=== PATIENT | male | born 1955 | race Hispanic/Latino ===

== ENCOUNTER 2020-05-23 15:46 | Inpatient (IN) | payer SELFPAY ==
[~2020-05-23] VITALS: Ht 167.6 cm; Wt 67.0 kg
[~2020-05-23 15:46] MED LIST: ALLEGRA30 MG OR; BENADRYL25 M1 OR; DARVOCET-N 100100 MG OR; GENTAMICIN15 ML/BTL OP; LORTAB 5/3255 MG PO; NAPROSYN500 MG PO; SEPTRA DS1 TAB OR
--- NOTE | 2020-05-23 16:01 | NUR ---
PATIENT REMAINS ON EMS STRETCHER WITH EMS AWAITING ROOM ASSIGNMENT. MD NOTIFIED OF PATIENT STATUS
--- NOTE | 2020-05-23 16:49 | NUR ---
PATEINT TO ROOM 16 FOR EXAM
--- NOTE | 2020-05-23 17:41 | NUR ---
PATEINT RESTING AWAITING LAB AND RADIOLOGY RESULTS PATIENT DENIES ANY SOB OR PAIN AT THIS TIME
[2020-05-23 18:13] LABS: URINE BILIRUBIN - DIPSTICK NEGATIVE (NEGATIVE); URINE BLOOD DIPSTICK NEGATIVE (NEGATIVE); URINE COLOR YELLOW; URINE GLUCOSE - DIPSTICK NEGATIVE (NEGATIVE); URINE KETONE NEGATIVE (NEGATIVE); URINE LEUK ESTERASE NEGATIVE (NEGATIVE); URINE NITRITE - DIPSTICK NEGATIVE (Negative); URINE PROTEIN - DIPSTICK NEGATIVE (NEG-TRACE); URINE UROBILINOGEN - DIPSTICK 0.2 E.U./dL (0.2)
[2020-05-23 18:22] LABS: ALBUMIN 3.8 g/dL (3.2-5.0); ALKALINE PHOSPHATASE 58 u/l (38-126); BUN 12 mg/dL (8-23); BUN/CREATININE RATIO 12 (12-20 (CALC)); CARBON DIOXIDE 20 mmol/l (22-30); CHLORIDE 95 mmol/l (95-108); GFR > 60 ML/MIN (>=60 (CALC)); GFR FOR AFR.AMER. > 60 ML/MIN (>=60 (CALC)); LIPASE 116 u/l (23-300); POTASSIUM 4.1 mmol/l (3.5-5.1); TOTAL PROTEIN 6.5 g/dL (6.3-8.2)
[2020-05-23 18:23] LABS: ACT PARTIAL THROMBO TIME 25.5 SECONDS (20.0-32.5); INTERNATIONAL NORMALIZED RATIO 1.3 RATIO (0.7-1.3); PROTHROMBIN TIME 12.7 SECONDS (9.0-12.5)
[2020-05-23 18:24] LABS: HEMATOCRIT 33.3 % (39.0-50.0); HEMOGLOBIN 11.4 g/dl (14.0-18.0); RED BLOOD COUNT 3.21 mill/uL (4.70-6.10)
[2020-05-23 18:25] LABS: BASO% 0 % (0-3); EOS% 0 % (0-8); LYMPH% 26 % (15-41); MEAN CELL VOLUME 103.7 fL CALC (80.0-100.0); MEAN CORPUSCULAR HGB 35.5 pG CALC (26.0-32.0); MEAN CORPUSCULAR HGB CONC 34.2 g/dL CAL (32.0-36.0); MONO% 13 % (2-13); NEUT% 61 % (42-76); PLATELET COUNT 215 thou/uL (130-400); RED CELL DISTRI WIDTH 18.2 % (11.5-15.5)
[2020-05-23 18:31] LABS: ANION GAP 16 (6-22 (CALC)); BILIRUBIN, TOTAL 1.4 mg/dL (0.0-1.4); SGOT/AST 87 u/l (19-48); SODIUM 127 mmol/l (137-146)
--- NOTE | 2020-05-23 18:40 | NUR ---
PATIENT RESTING IN STRETCHER IN NAD AND DENIES ANY NEEDS AT THIS TIME. PATIENT DOES REPORTS GENERALIZED ABDOMINAL PAIN. PT REMOVED FROM 02. SPO2 REMAINS 98% ON ROOM AIR.
--- NOTE | 2020-05-23 19:30 | NUR ---
RESTING COMFORTABLY AWAITING CT.
--- NOTE | 2020-05-23 20:30 | NUR ---
NO CHANGE IN EXAM. AWAITING TEST RESULTS.
--- NOTE | 2020-05-23 21:30 | NUR ---
NO CHANGES NOTED APPEARS COMFORTABLE.
--- NOTE | 2020-05-23 23:03 | NUR ---
AWAITING DISPO. NO SIGNIFICANT CHANGE NOTED.
[2020-05-24] VITALS (7 sets, daily range): BP systolic 104–129; BP diastolic 70–90
--- NOTE | 2020-05-24 00:36 | NUR ---
PT ARRIVED TO FLOOR VIA WHEELCHAIR ACCOMPANIED BY ER STAFF. PT ALERT AND ORIENTED X3. NO APPARENT DISTRESS NOTED. PT AMBULATED TO BED WITH UNSTEADY GAIT. PT DENIES ANY PAIN AT THIS TIME, STATES PAIN MEDICATION MAKING HIM DIZZY AND HOT. DIAPHORETIC. COOL WET WASH CLOTH AND FAN PROVIDED AT THIS TIME. HOB ELEVATED. O2 SATS 85% ON RA, 2L/M VIA NC APPLIED AT THIS TIME AND SATS UP TO 96%. ELECTRICAL CONTROLS ENGINEER IN PLACE. IV SITE APPEARS HEALTHY, IVF INITIATED AT THIS TIME. DISCUSSED POC AND NPO. PT VERBALIZED UNDERSTANDING. ORIENTED TO ROOM AND CALL LIGHT SYSTEM. EDUCATED ON FALL RISKS AND SAFETY PRECAUTIONS. CALL LIGHT WITHIN REACH. WILL CONTINUE TO MONITOR.
--- NOTE | 2020-05-24 03:13 | NUR ---
PILE DRIVER IN ROOM TO OBTAIN LABS.
--- NOTE | 2020-05-24 08:00 | NUR ---
PT IS NPO. PT IS A&O X3. ASSESSMENT DONE. PT STATED PAIN ABD 5/10 BUT REFUSED PAIN MEDICATION AT THIS TIME. O2 AT 2L VIA NC. IVF INFUSING WELL. PT DENIES NEEDS AT THIS TIME. SAFETY PRECAUTION REINFORCED AND CALL LIGHT IN REACH.
--- NOTE | 2020-05-24 12:03 | NUR ---
PT IS RESTING IN BED WITH NO S/S OF DISTRESS NOTED. PT DENIES NEEDS AT THIS TIME. CALL LIGHT IN REACH.
--- NOTE | 2020-05-24 15:30 | NUR ---
PT IS RESTING IN BED. PO PROVIDED. PT DENIES PAIN AT THIS TIME. PT DENIES ANY OTHER NEEDS AT THIS TIME. CALL LIGHT IN REACH.
--- NOTE | 2020-05-24 20:03 | NUR ---
REPORT RECEIVED FROM RN. PT RESTING IN BED SUPINE; ASSESSMENT AND VITALS COMPLETE ALERT AND ORIENTED. PT DENIES PAIN. PT C/O OF NAUSEA. RESPIRATIONS HEARD DIMINISHED; SOB UPON EXERTION; PT ON 2 LITERS OF O2. TELEMENTRY IN PLACE IN SR. PT ENCOURAGED TO VERBALIZE CONCERNS. STATES UNDERSTANDING. SAFETY MEASURES IN PLACE. CALL LIGHT WITHIN REACH.
--- NOTE | 2020-05-25 00:11 | NUR ---
PT REQUESTED TO SIT IN CHAIR. FEELING ANXIOUS, NAUSEA AND SHORT OF BREATH. ZOFRAN PROVIDED. PT IS ON 2 LITERS OF 02 AND STATING AT 99%. CALL SOFIA WITHIN REACH. WILL MONITOR CLOSELY.
--- NOTE | 2020-05-25 00:16 | NUR ---
PT PULLED OUT HIS IV. PT REMAINS CONFUSED. SITTER IS BEDSIDE. WILL CONTINUE TO MONITOR.
--- NOTE | 2020-05-25 03:54 | NUR ---
PT RESTING IN BED, NO SIGNS OF DISTRESS NOTED, RESP EVEN AND UNLABORED. PT VOICES NO NEEDS OR COMPLAINTS AT THIS TIME. CALL LIGHT IN REACH,CONTINUE TO MONITOR.
[2020-05-25 04:05] VITALS: BP 95/67
--- NOTE | 2020-05-25 06:55 | NUR ---
REPORT RECEIVED FORM MAGALIE LYNNE. PT RESTING IN BED, NO S/S OF DISTRESS AT THIS TIME. SAFETY PRECAUTIONS IN PLACE. WILL CONTINUE MONITOR.
[2020-05-25 07:24] VITALS: BP 105/70
--- NOTE | 2020-05-25 09:53 | NUR ---
PT RESTING IN BED, ALERT AND ORIENTED. RESPIRATIONS ARE EVEN AND UNLABORED ON RA. LUNGS SOUND CLEAR. PEDAL PULSES ARE WEAK. PT REPORTS HAVING ABDOMINAL PAIN RATING IT 8/10, PT EDUCATED ON PAIN MED SCHEDULE, MD TO BE NOTIFIED. SAFETY PRECAUTIONS IN PLACE. WILL CONTINUE TO MONITOR.
[2020-05-25 11:02] VITALS: BP 98/71
--- NOTE | 2020-05-25 11:48 | NUR ---
PT SITTING UP AT THIS SIDE OF THE BED. NO S/S OF DISTRESS AT THIS TIME. SAFETY PRECAUTIONS IN PLACE. WILL CONTINUE TO MONITOR.
[2020-05-25 15:05] VITALS: BP 98/76
--- NOTE | 2020-05-25 16:02 | NUR ---
PT RESTING IN BED, RESPIRATIONS ARE EVEN AND UNLABORED. NO S/S OF DISTRESS AT THIS TIME. WILL CONTINUE TO MONITOR.
--- NOTE | 2020-05-25 19:01 | NUR ---
REPORT FROM PILY MEJIAS. PT NOTED SITTING UP IN BED. ALERT AND ORIENTED. NO APPARENT DISTRESS NOTED. RESPIRATIONS EVEN AND UNLABORED. PT C/O NO GETTING ANY REST AND REQUEST SLEEPING PILL LATER THIS EVENING. DISCUSSED POC AND ANEW MEDICATION ORDERS FOR SLEEP NEED. PT VERBALIZED UNDERSTANDING. FEATHER BONER IN PLACE. IV SITE APPEARS HEALTHY WITH IVF INFUSING. PT REMAINS ON CLEAR LIQUID DIET. NO CURRENT WANTS OR NEEDS. CALL LIGHT WITHIN REACH. WILL CONTINUE TO MONITOR.
[2020-05-25 20:16] VITALS: BP 112/79
[2020-05-25 23:15] VITALS: BP 104/73
--- NOTE | 2020-05-25 23:57 | NUR ---
PT NOTED RESTING IN BED. RESPIRATIONS EVEN AND UNLABORED. NO APPARENT DISTRESS NOTED. IVF INFUSING WITHOUT DIFFICULTY. PT DENIES ANY PAIN OR DISCOMFORT. NO CURRENT WANTS OR NEEDS. CALL LIGHT WITHIN REACH. WILL CONTINUE TO MONITOR.
[2020-05-26] VITALS (17 sets, daily range): BP systolic 99–138; BP diastolic 67–88
--- NOTE | 2020-05-26 04:45 | NUR ---
PT REFUSED PROFESSOR OF COMMUNICATION ARTS TO DRAW MORNING LABS. SKIDDER LEVER OPERATOR IN TO DISCUSSED AND EDUCATE ON IMPORTANCE OF LABS. PT VERBALIZED UNDERSTANDING AND AGREES TO ALLOW SKIDDER LEVER OPERATOR TO DRAW LABS AT THIS TIME. LABS OBTAIN WITH X1 ATTEMPT. PT TOLERATED WELL. COFFEE PROVIDED UPON REQUEST. CALL LIGHT WITHIN REACH. WILL CONTINUE TO MONITOR.
[2020-05-26 05:07] LABS: HEMATOCRIT 33.8 % (39.0-50.0); HEMOGLOBIN 11.3 g/dl (14.0-18.0); IMMATURE GRANULOCYTES 0.5 % (0.0-5.0); MEAN CELL VOLUME 104.6 fL CALC (80.0-100.0); MEAN CORPUSCULAR HGB CONC 33.4 g/dL CAL (32.0-36.0); NEUT# 8.29 thou/uL (1.82-7.42); RED BLOOD COUNT 3.23 mill/uL (4.70-6.10); RED CELL DISTRI WIDTH 17.2 % (11.5-15.5)
[2020-05-26 05:18] LABS: ALBUMIN 3.5 g/dL (3.2-5.0); ALKALINE PHOSPHATASE 59 u/l (38-126); ANION GAP 14 (6-22 (CALC)); BILIRUBIN, TOTAL 1.9 mg/dL (0.0-1.4); BUN 14 mg/dL (8-23); BUN/CREATININE RATIO 13 (12-20 (CALC)); CARBON DIOXIDE 19 mmol/l (22-30); CHLORIDE 102 mmol/l (95-108); CREATININE 1.1 mg/dL (0.7-1.3); GFR > 60 ML/MIN (>=60 (CALC)); GFR FOR AFR.AMER. > 60 ML/MIN (>=60 (CALC)); POTASSIUM 4.6 mmol/l (3.5-5.1); SODIUM 132 mmol/l (137-146)
[2020-05-26 05:37] LABS: SGOT/AST 545 u/l (19-48)
--- NOTE | 2020-05-26 07:00 | NUR ---
REPORT RECEIVED FROM HORACE DIAL. PT RESTING IN BED, NO S/S OF DISTRESS AT THIS TIME. SAFETY PRECAUTIONS IN PLACE. WILL CONTINUE TO MONITOR.
--- NOTE | 2020-05-26 09:10 | NUR ---
PT RESTING IN RECLINER AT BEDSIDE, ALERT AND ORIENTED. RESPIRATIONS ARE EVEN AND UNLABORED ON RA. LUNG SOUND DIMINISHED. PEDAL PULSES ARE WEAK. PT REPORTS HAVING MODERATE ABDOMINAL PAIN, PT TO BE MEDICATED PER EMAR ORDERS. SAFETY PRECAUTIONS IN PLACE. WILL CONTINUE TO MONITOR.
--- NOTE | 2020-05-26 12:25 | NUR ---
PT SITTING IN RECLINER AT BEDSIDE, RESPIRATIONS ARE EVEN AND UNLABORED ON RA. PT REPORTS FEELING NAUSEOUS STATING THE ZOFRAN ISN'T HELPING, ANPR TO BE NOTIFIED. SAFETY PRECAUTIONS IN PLACE. WILL CONTINUE TO MONTIOR.
--- NOTE | 2020-05-26 13:20 | NUR ---
PT RESTING IN RECLINER. PT ASSISTED INTO BED, PT REPORTS FEELING SOB, O2 SAT ON RA 88%, O2 @ 2L VIA NC APPLIED PT O2 SAT 99%. ANRP NOTIFIED OF PT SEEMING TO HAVE AN INCREASE IN SHORTNESS OF BREATH. SAFETY PRECAUTIONS IN PLACE. WILL CONTINUE TO MONITOR.
--- NOTE | 2020-05-26 14:10 | NUR ---
PT BATHROOM LIGHT GOING OFF, YOUNG ABURTO WENT IN TO ASSIST PT, YOUNG CALLED CYANIDE POT TENDER FOR ASSISTANCE. UPON ENTERING THE ROOM PT WAS SITTING ON TOLIET DYSPNEIC ON RA, SOAKED WITH SWEAT. PT ASSISTED BACK INTO BED. 1421 VS OBTAIN BP, ACCU 94 1430 RAPID RESPONSE CALLED, DOG RAISER AT BEDSIDE ORDERS OBTAINED AND TO BE CARRIED OUT. EKG OBTAINED. LAB AT BEDSIDE OBTAINING BLOOD FOR LABS. RESPIRATORY AT BEDSIDE OBTAINING BLOOD FOR BLOOD GAS. 1500 PT TRANSPORTED TO ICU, REPORT GIVEN AT BEDSIDE.
[2020-05-26 14:29] LABS: HEMATOCRIT 37.3 % (39.0-50.0); HEMOGLOBIN 12.1 g/dl (14.0-18.0); IMMATURE GRANULOCYTES 0.6 % (0.0-5.0); MEAN CELL VOLUME 107.8 fL CALC (80.0-100.0); MEAN CORPUSCULAR HGB CONC 32.4 g/dL CAL (32.0-36.0); NEUT# 10.76 thou/uL (1.82-7.42); RED BLOOD COUNT 3.46 mill/uL (4.70-6.10); RED CELL DISTRI WIDTH 17.6 % (11.5-15.5)
[2020-05-26 14:46] LABS: ALBUMIN 4.1 g/dL (3.2-5.0); ALKALINE PHOSPHATASE 63 u/l (38-126); BUN 13 mg/dL (8-23); BUN/CREATININE RATIO 11 (12-20 (CALC)); CHLORIDE 101 mmol/l (95-108); CREATININE 1.2 mg/dL (0.7-1.3); GFR > 60 ML/MIN (>=60 (CALC)); GFR FOR AFR.AMER. > 60 ML/MIN (>=60 (CALC)); POTASSIUM 4.6 mmol/l (3.5-5.1); SODIUM 132 mmol/l (137-146); TOTAL PROTEIN 6.8 g/dL (6.3-8.2)
[2020-05-26 14:56] LABS: ANION GAP 22 (6-22 (CALC)); BILIRUBIN, TOTAL 2.7 mg/dL (0.0-1.4); CARBON DIOXIDE 14 mmol/l (22-30); SGOT/AST > 1500 u/l (19-48)
--- NOTE | 2020-05-26 15:19 | NUR ---
PATIENT TRANSFERRED TO ICU AFTER RAPID RESPONSE ON MED SURGE UNIT. MED SURG NURSE STATED IN REPORT THAT PATIENT HAS BEEN SOB ALL DAY TODAY. PATIENET WAS UP TO THE BATHROOM AND BECAME EXTREMELY SOB. O2 SATS WERE 84, RAIPID CALLED AND PATIENT STABLIZED AND TRANSFEERED TO ICU @1430. PATIENT PLACED ON 4 LTRS O2, TEMP 97.2, BP 111/81, RESP 18, PULSE 102 O2 SATS 97 ON 4 LTR O2. LASIX GIVEN AND FLAGYL ALSO GIVEN. FLUIDS HELD PER MD AND XRAY AT BEDSIDE PERFORMING XRAY OF CHEST. PATIENT EASILY ARROUSED, PATIENT SLIGHTLY DISORIENTED ALERT TO SELF AND PLACE. BED IN LOWEST POSTION, VITALS Q 15 MIN, CALL SOFIA WITH IN REACH AND URINAL AT BEDSIDE. PATIENT IS VISABLE TO NURSE AT STATION.
--- NOTE | 2020-05-26 16:21 | NUR ---
NOTIFEDOF D-DIMER RESULTS. REQUESTS A CTA.
--- NOTE | 2020-05-26 17:50 | NUR ---
PATIENT TAKEN TO CT. AWAITING RESULTS. #20 IN RT AC
--- NOTE | 2020-05-26 18:12 | NUR ---
PATIENT WAS OFFERED ASSISTANCE TO BEDSIDE COMMODE AND REUSED STATING "NO, i KNOW i WONT GO"
--- NOTE | 2020-05-26 19:00 | NUR ---
I WALK IN PATIENT IS RESTLESS IN BED. REPORTS HE HAS NEVER HAD SO MUCH BLOOD DRAWN, NOT EVEN IN [place]. PT WAS EXPLAINED POC, PT WAS ASSISTED WITH REPOSITIONING. LIGHTS TURNED OFF AND TV OFF PER REQUEST. PT HAS HISTORY OF ALCOHOL, I ASKED IF HE DRINKS ALCOHOL DAILY, HE DENIES ALCOHOL CONSUMTION. WILL CONTINUE TO MONITOR. PT REPORTS DISCOMFORT IN STOMACH REGION. DECLINES PAIN MEDICATION AT THIS TIME. PT BECOMES SOB WITH EXRTION. IS ON NC 4 L/MIN, O2 SAT IS 98%. NURSE ASSESSMENT PERFORMED. BP WNL. AFEBRILE. SR ON TELEMETRY, HR RANGES 90'S. 400 ML OF URINE EMPTIED FROM URINAL, URINE IS YELLOW/CLEAR. IV X2 INTACT AND SALINE LOCKED AT THIS MOMENT, FLUSH PROPERLY. CALL LIGHT WITHIN REACH.
--- NOTE | 2020-05-26 20:47 | NUR ---
CALLED AND SPOKE TO DR AYDEN ZUNIGA RESULTS OF CTA OF CHEST THAT WAS DONE AT 1749 TODAY. READ THE RESULTS TO DR HENSLEY, NOTIFIED HIM PATIENT O2 SAT 100% ON 4 L/MIN NC, SOB WITH EXERTION ONLY, DR HENSLEY GAVE ORDERS IF PATIENT BECOMES SOB WITH NO ALEVIATION CAN GIVE IV LASIX 40 MG X1. STOP IV FLUIDS FOR NOW. WATCH BP.
--- NOTE | 2020-05-26 23:02 | NUR ---
IV ANTIBITOIC INFUSING NOW ON KARTHIK IV, NO REDNESS OR TENDERNESS NOTED AT SITE. PATIENT TOLERATES WELL. PROVIDED A SLEEPING MEDICATION. O2 WAS WEANED TO 3 L/MIN NC, O2 SATS ARE 99%. SLIGHT SOB NOTED WITH EXERTION. CALL LIGHT WITHIN REACH.
[2020-05-27] VITALS (11 sets, daily range): BP systolic 83–109; BP diastolic 55–83
--- NOTE | 2020-05-27 01:30 | NUR ---
PATIENT HAS TO BE REMINDED NOT PULL OFF HIS IV'S OR PHARMACEUTICAL BOTANIST EQUIPMENT OFF AT TIMES.
--- NOTE | 2020-05-27 06:02 | NUR ---
PATIENT AWAKENS EASILY WHEN SPOKEN TO. SLIGHTLY RESTLESS IN BED. NO COMPLAINTS OR NEEDS AT THIS TIME. ANTIBIOTIC INFUSING. CALL LIGHT WITHIN REACH. O2 WEANED TO 2 L/MIN NC, O2 SAT IS 97%-100%.
--- NOTE | 2020-05-27 06:45 | NUR ---
REPORT RECEIVED FROM ACOSTA MEJIAS. TATIANA HANLEY.
--- NOTE | 2020-05-27 07:15 | NUR ---
PT RESTING IN BED WITH EYES CLOSED. AROUSES TO VERBAL STIMULI. PT IS ALERT AND ORIENTED X3. SHIFT ASSESSMENT COMPLETED AT THIS TIME. IV PATENT X2. CALL LIGHT IN REACH. WILL CONTINUE TO MONITOR.
--- NOTE | 2020-05-27 08:07 | NUR ---
DR PALM AT BEDSIDE AT THIS TIME.
--- NOTE | 2020-05-27 08:15 | NUR ---
PT TO RADIOLOGY VIA WHEELCHAIR ACCOMPANIED BY PET NUTRITION SPECIALIST. PT IN STABLE CONDIDITON.
--- NOTE | 2020-05-27 09:35 | NUR ---
PORT FLUSHED AND DEACCESSED TO RIGHT CHEST. PT TOLERATED WELL.
--- NOTE | 2020-05-27 11:30 | NUR ---
pt returned from radiology via wheelchair. pt transferred self to bed from wheelchair. am meds given at this time. pt also set up for lunch. pt sats 94%> on room air. call light in reach. will continue ot monitor.
--- NOTE | 2020-05-27 12:49 | NUR ---
SPOKE WITH DR PALM AND DR REN. PT TO BE TRANSFERRED TO [facility] FOR CHOLECYSTECTOMY TUBE PLACEMENT.
--- NOTE | 2020-05-27 12:57 | NUR ---
LAB AT BEDSIDE AT THIS TIME. PHONED [facility] SPOKE WITH RUBI. PT INFO GIVEN. PT AWARE OF NEED TO TRANSFER.
--- NOTE | 2020-05-27 12:58 | NUR ---
FACE SHEET, COVID SWAB, AND H&P FAXED TO [facility].
[2020-05-27 13:09] LABS: HEMATOCRIT 33.8 % (39.0-50.0); IMMATURE GRANULOCYTES 0.5 % (0.0-5.0); MEAN CORPUSCULAR HGB 35.1 pG CALC (26.0-32.0); MEAN CORPUSCULAR HGB CONC 32.5 g/dL CAL (32.0-36.0); NEUT# 11.59 thou/uL (1.82-7.42); RED BLOOD COUNT 3.13 mill/uL (4.70-6.10); RED CELL DISTRI WIDTH 18.1 % (11.5-15.5)
--- NOTE | 2020-05-27 13:14 | NUR ---
CONSENT OBTAINED FROM PATIENT TO TRANSFER TO [facility].
--- NOTE | 2020-05-27 13:14 | NUR ---
PT UP TO COMMODE 2X WITH DIARRHEA.
[2020-05-27 13:31] LABS: INTERNATIONAL NORMALIZED RATIO 2.6 RATIO (0.7-1.3); PROTHROMBIN TIME 24.4 SECONDS (9.0-12.5)
--- NOTE | 2020-05-27 13:40 | NUR ---
VISITOR AT BEDSIDE. PT REQUESTED THAT SHE BE UPDATED. UPDATED PER PT REQUEST.
[2020-05-27 13:56] LABS: ALBUMIN 3.1 g/dL (3.2-5.0); ALKALINE PHOSPHATASE 48 u/l (38-126); ANION GAP 15 (6-22 (CALC)); BILIRUBIN, TOTAL 2.8 mg/dL (0.0-1.4); BUN 17 mg/dL (8-23); BUN/CREATININE RATIO 15 (12-20 (CALC)); CARBON DIOXIDE 15 mmol/l (22-30); CHLORIDE 106 mmol/l (95-108); CREATININE 1.2 mg/dL (0.7-1.3); GFR > 60 ML/MIN (>=60 (CALC)); GFR FOR AFR.AMER. > 60 ML/MIN (>=60 (CALC)); POTASSIUM 4.7 mmol/l (3.5-5.1); SGOT/AST 2076 u/l (19-48); SODIUM 131 mmol/l (137-146); TOTAL PROTEIN 5.5 g/dL (6.3-8.2)
--- NOTE | 2020-05-27 14:21 | NUR ---
PT COUGHING AND O2 SATS DROP INTERMITTENTLY. PLACED PT BACK ON O2 2L NC. CALL LIGHT IN REACH. WILL CONTINUE TOMONITOR.
--- NOTE | 2020-05-27 14:37 | NUR ---
respirations are noted to be labored while resting. o2 sats 90% on 3l nc. dr wheatley notified.
--- NOTE | 2020-05-27 14:40 | NUR ---
ORDERES RECEIVED FROM DR PALM FOR STAT PORTABLE CXR AND STAT ABG. RT AND RADIOLOGY NOTIFIED.
--- NOTE | 2020-05-27 14:44 | NUR ---
RT AT BEDSIDE FOR STAT ABG
--- NOTE | 2020-05-27 14:47 | NUR ---
RADIOLOGY AT BEDSIDE FOR PORTABLE CXR
--- NOTE | 2020-05-27 15:14 | NUR ---
DR COATES NOTIFIED OF ABG AND CXR RESULTS. INCREASED O2 TO 4L NC
--- NOTE | 2020-05-27 15:52 | NUR ---
PT RESTING COMFORTABLY IN BED WITH EYES CLOSED. VISITOR AT BEDSIDE. RESP ARE EVEN AND UNLABORED. NO DISTRESS NOTED CALL LIGHT IN REACH. WILL CONTINUE OT MONITOR.
--- NOTE | 2020-05-27 18:30 | NUR ---
RUBI FROM [facility] CALLED AND STATED THAT THEY CURRENTLY DO NOT HAVE A BED FOR THIS TRANSFER. IF THE PATIENT CONDTION SHOULD CHANGE NOTIFIY [facility]. PATIENT WILL BE A PRIORITY FOR TRANSFER TOMMORROW.
--- NOTE | 2020-05-27 19:30 | NUR ---
PATIENT IS AWAKE, ALERT AND ORIENTED X4. O2 WEANED TO 3 L/MIN NC. ONLY SLOIGHT SOB WITH EXERTION NOTED. NO COMPLAINTS OF PAIN. BP 90'S SYTOLIC. SR ON TELEMETRY, HR 90'S. PATIENT IS AWARE OF CURRENT POC AND PENDING TRANSFER. IV X2 INTACT, FLUSH PROPERLY, NO REDNESS OR TENDERNESS NOTED, FLUSH PROPERLY, SALINE LOCKED. PATIENT HAS NONPRODUCTIVE COUGH. NURSE ASSESSMNENT PERFORMED. SELF REPOSITIONS. WARM BLANKET PROVIDED. CALL LIGHT WITHIN REACH.
--- NOTE | 2020-05-27 21:00 | NUR ---
PATIENT ABLE TO [place]ALKL TO RESTROOM WITHOUT DIFFICYLTY, HAD EPISODE OF DIARRHEA. NOW BACK TO BED, NO ACUTE DISTRESS SHOWN.
[2020-05-28] VITALS (7 sets, daily range): BP systolic 95–121; BP diastolic 68–89
--- NOTE | 2020-05-28 00:50 | NUR ---
PATIENT GETS UP FROM BED, COMPLAINS HE IS UNCOMFORTABLE. PATIENT MOVES AROUND IN BED AND BECOMES WRAPPED IN ALL OF EQUIPMENT. BED WAS FIXED AND PATIENT WAS ASSISTED TO GET COMFORTABLE. NO ACUTE DISTRESS SHOWN. CALL LIGHT WITHIN REACH.
--- NOTE | 2020-05-28 01:31 | NUR ---
PT COMPLAINS OF EPIGASTRIC PAIN, RATES 8/10. MORPHINE IV GIVEN.
--- NOTE | 2020-05-28 03:00 | NUR ---
PATIENT IS AWAKE, COMPLAINS HE CANNOT SLEEP. PT WAS GIVEN A SLEEPING MEDICATION LAST NIGHT. NO NEEDS AT THIS TIME. CALL LIGHT WITHIN REACH.
--- NOTE | 2020-05-28 05:38 | NUR ---
PATIENT IS AWAKE. NO ACUTE DISTRESS SHOWN. PULSE OXIMETER FIXED, BP CUFF ON LEFT ARM, PT MOVES IIN BED AND PULLS THINGS OFF AT TIMES. CALL LIGHT WITHIN REACH.
--- NOTE | 2020-05-28 06:45 | NUR ---
REPORT RECEIVED FROM ACOSTA MEJIAS. CARE ASSUMED.
--- NOTE | 2020-05-28 07:00 | NUR ---
PT RESTING IN BED WITH EYES CLOSED. PT IS ALERT AND ORIENTED X3. SHIFT ASSESSMENT COMPLETED AT THIS TIME. IV PATENT X2. CALL LIGHT IN REACH. WILL CONTINUE TO MONITOR.
--- NOTE | 2020-05-28 07:13 | NUR ---
LAB AT BEDSIDE AT THIS TIME
[2020-05-28 07:44] LABS: HEMATOCRIT 33.9 % (39.0-50.0); HEMOGLOBIN 11.4 g/dl (14.0-18.0); IMMATURE GRANULOCYTES 0.7 % (0.0-5.0); MEAN CELL VOLUME 102.7 fL CALC (80.0-100.0); MEAN CORPUSCULAR HGB 34.5 pG CALC (26.0-32.0); MEAN CORPUSCULAR HGB CONC 33.6 g/dL CAL (32.0-36.0); NEUT# 11.7 thou/uL (1.82-7.42); RED BLOOD COUNT 3.3 mill/uL (4.70-6.10); RED CELL DISTRI WIDTH 17.8 % (11.5-15.5)
--- NOTE | 2020-05-28 08:00 | NUR ---
DR PALM AT BEDSIDE AT THIS TIME.
[2020-05-28 08:04] LABS: INTERNATIONAL NORMALIZED RATIO 2.8 RATIO (0.7-1.3); PROTHROMBIN TIME 26.6 SECONDS (9.0-12.5)
[2020-05-28 08:08] LABS: ALBUMIN 3.3 g/dL (3.2-5.0); ALKALINE PHOSPHATASE 62 u/l (38-126); BILIRUBIN, TOTAL 3.9 mg/dL (0.0-1.4); BUN 20 mg/dL (8-23); BUN/CREATININE RATIO 18 (12-20 (CALC)); CHLORIDE 104 mmol/l (95-108); CREATININE 1.1 mg/dL (0.7-1.3); GFR > 60 ML/MIN (>=60 (CALC)); GFR FOR AFR.AMER. > 60 ML/MIN (>=60 (CALC)); POTASSIUM 4.7 mmol/l (3.5-5.1); SODIUM 132 mmol/l (137-146); TOTAL PROTEIN 5.6 g/dL (6.3-8.2)
[2020-05-28 08:11] LABS: ANION GAP 12 (6-22 (CALC)); CARBON DIOXIDE 21 mmol/l (22-30)
--- NOTE | 2020-05-28 08:22 | NUR ---
POINTER MACHINE OPERATOR AT [facility] AT THIS TIME.
[2020-05-28 08:37] LABS: SGOT/AST 1951 u/l (19-48)
--- NOTE | 2020-05-28 10:00 | NUR ---
PT RESTING IN BED AWAKE AND WATCHING TV. JUICE AND JELLO PROVIDED.
--- NOTE | 2020-05-28 11:10 | NUR ---
RUBI WITH [facility] CALLED WITH BED ASSIGNMENT AND ACCEPTANCE. PT WILL GO TO [address]. PHONED [facility] SPOKE WITH ANA TO SET UP TRANSPORT. ETA 20-30 MINUTES. PT UPDATED.
--- NOTE | 2020-05-28 11:25 | NUR ---
PT MEDICATED FOR PAIN AND NAUSEA.
--- NOTE | 2020-05-28 12:05 | NUR ---
PT LEAVES VIA [place] ON STRETCHER FOR TRANSFER TO [facility]. REPORT CALLED TO MALENA AT [phone]. SPOUSE UPDATED ON TRANSFER WELL.
--- NOTE | 2020-05-28 12:11 | NUR ---
ECHO FAXED TO [facility] AND CALLED RUBI SHE WILL GET IT TO THE UNIT PT IS TRANSFERRING TO
== END 2020-05-28 12:05 | disposition short-term general hospital (02) | DRG 444 ==
LOC: ED 15:46 → ED-I 23:07 → ED 23:35 → MS2 23:36 → ICU 05-26 14:40
PROVIDERS: Internal Medicine; Nurse Practitioner Family; Student in an Organized Health Care Education/Training Program; ADMIT Internal Medicine; ATTEND Internal Medicine
PROC: 0W993ZZ Drainage of Right Pleural Cavity, Percutaneous Approach (ICD-10-PCS; principal; 2020-05-27)
DX: K81.0 Acute cholecystitis (principal); J18.9 Pneumonia, unspecified organism; A41.9 Sepsis, unspecified organism; R65.20 Severe sepsis without septic shock; J96.01 Acute respiratory failure with hypoxia; I50.21 Acute systolic (congestive) heart failure; I42.9 Cardiomyopathy, unspecified; J91.8 Pleural effusion in other conditions classified elsewhere; I95.9 Hypotension, unspecified; E80.6 Other disorders of bilirubin metabolism; I25.10 Atherosclerotic heart disease of native coronary artery without angina pectoris; I25.2 Old myocardial infarction; G47.00 Insomnia, unspecified; F17.200 Nicotine dependence, unspecified, uncomplicated; I44.7 Left bundle-branch block, unspecified; Z20.828 Contact with and (suspected) exposure to other viral communicable diseases
CPT/HCPCS: A9537; J0692; Q9967; S0164

== ENCOUNTER 2020-06-19 13:54 | Inpatient (IN) | payer SELFPAY ==
[~2020-06-19] VITALS: Ht 167.6 cm; Wt 60.5 kg
--- NOTE | 2020-06-19 14:00 | NUR ---
Pt to room # 14 via W/C for bedside triage
[2020-06-19 14:45] LABS: HEMATOCRIT 39.7 % (39.0-50.0); HEMOGLOBIN 12.2 g/dl (14.0-18.0); IMMATURE GRANULOCYTES 0.7 % (0.0-5.0); MEAN CELL VOLUME 109.7 fL CALC (80.0-100.0); MEAN CORPUSCULAR HGB 33.7 pG CALC (26.0-32.0); MEAN CORPUSCULAR HGB CONC 30.7 g/dL CAL (32.0-36.0); NEUT# 4.6 thou/uL (1.82-7.42); RED BLOOD COUNT 3.62 mill/uL (4.70-6.10); RED CELL DISTRI WIDTH 19.4 % (11.5-15.5)
[2020-06-19 14:49] LABS: GFR > 60 ML/MIN (>=60 (CALC)); GFR FOR AFR.AMER. > 60 ML/MIN (>=60 (CALC))
--- NOTE | 2020-06-19 15:10 | NUR ---
PT RESTING IN BED. NO DISTRESS. GOOD SATURATIONS AT 100%. VITALS STABLE.
[2020-06-19 15:14] LABS: ALBUMIN 3.9 g/dL (3.2-5.0); ALKALINE PHOSPHATASE 88 u/l (38-126); BUN 30 mg/dL (8-23); BUN/CREATININE RATIO 31 (12-20 (CALC)); CARBON DIOXIDE 22 mmol/l (22-30); CHLORIDE 103 mmol/l (95-108); GFR > 60 ML/MIN (>=60 (CALC)); GFR FOR AFR.AMER. > 60 ML/MIN (>=60 (CALC)); SODIUM 135 mmol/l (137-146)
[2020-06-19 15:17] LABS: ANION GAP 15 (6-22 (CALC)); SGOT/AST 69 u/l (19-48); TOTAL PROTEIN 7.3 g/dL (6.3-8.2)
[2020-06-19 15:18] LABS: POTASSIUM 5.3 mmol/l (3.5-5.1)
--- NOTE | 2020-06-19 16:04 | NUR ---
PT RESTING IN BED. DENIES ANY PAIN OR SOB. CONTINUING TO MONITOR.
--- NOTE | 2020-06-19 17:15 | NUR ---
PT AMBULATED TO BATHROOM WITHOUT DIFFICULTY. IV MEDS CONTINUE TO INFUSE WITHOUT COMPLICATIONS. STABLE ON MONITOR.
[2020-06-19] MEDS ORDERED: ALDACTONE25 MG PO (18:04)
[2020-06-19] MEDS ORDERED: FUROSEMIDE20 MG PO (18:04)
[2020-06-19] MEDS ORDERED: MIDODRINE HYDRO10 MG PO (18:05)
--- NOTE | 2020-06-19 18:35 | NUR ---
PT RESTING NO COMPLAINTS AT THIS TIME. BED IN LOW POSITION. ITEMS WITHIN REACH. PENDING ADMISSION TO [facility].
--- NOTE | 2020-06-19 18:50 | NUR ---
REPORT CALLED TO MAGALIE CH ON [facility]
--- NOTE | 2020-06-19 19:40 | NUR ---
PT TO FLOOR VIA W/C WITH O2 @ 3 LPM AND ANTIBIOTICS INFUSING. PT AMBULATORY TO BR UPON ARRIVAL. PT MASKED DO TO COVID PRECAUTIONS.
--- NOTE | 2020-06-19 19:45 | NUR ---
PT ARRIVED TO MS2 VIA WHEELCHAIR ACCOMPANIED BY ER NURSE, PT AMBULATED TO BED, ORIENTED TO ROOM AND CALL LIGHT, DISCUSSED POC. PT ON TELE, VERBALIZED UNDERSTANDING. 02 2.5L NC, ADMISSION ASSESSMENT COMPLETED, CALL LIGHT IN REACH,CONTINUE TO MONITOR.
[2020-06-19 19:59] VITALS: BP 100/79
[2020-06-19 23:30] VITALS: BP 95/74
--- NOTE | 2020-06-20 | NUR ---
PT'S VITALS OBTAINED, PT RETURNED FROM BATHROOM, SOB ON EXERTION. ENCOURAGED PT TO KEEP OXYGEN ON. OXYGEN EXTENSION TUBING APPLIED. CALL LIGHT IN REACH,CONTINUE TO MONITOR.
[2020-06-20 03:30] VITALS: BP 102/78
--- NOTE | 2020-06-20 04:00 | NUR ---
PT RESTING IN BED, REQUESTING SLEEPING PILL INFORMED PT THAT IT IS TOO LATE FOR A SLEEPING PILL, INFORMED PT THAT HE HAS ONE ORDERED BUT HE WOULD NEED TO ASK FOR IT EARLIER TONIGHT. PT VERBALIZED UNDERSTANDING. CONTINUE TO MONITOR.
[2020-06-20 08:04] LABS: HEMATOCRIT 36.9 % (39.0-50.0); HEMOGLOBIN 12.2 g/dl (14.0-18.0); IMMATURE GRANULOCYTES 0.7 % (0.0-5.0); MEAN CORPUSCULAR HGB 33.4 pG CALC (26.0-32.0); MEAN CORPUSCULAR HGB CONC 33.1 g/dL CAL (32.0-36.0); NEUT# 7.54 thou/uL (1.82-7.42); RED BLOOD COUNT 3.65 mill/uL (4.70-6.10); RED CELL DISTRI WIDTH 18.1 % (11.5-15.5)
[2020-06-20 08:07] LABS: MEAN CELL VOLUME 101.1 fL CALC (80.0-100.0)
[2020-06-20 08:20] VITALS: BP 95/77
--- NOTE | 2020-06-20 08:20 | NUR ---
PT SITTING IN BED. A&O X3. SHALLOW RESP NOTED. O2 VIA NC @3L IN PLACE. EXCERTIONAL SOB NOTED WHEN SPEAKING TO PT. PT REPORTS FEELING SOB FOR A "COUPLE DAYS" NOW. NO EDEMA NOTED. CALL LIGHT IN REACH. ASSESSMENT COMPLETED. DISCUSSED POC. CONTINUE TO MONITOR.
[2020-06-20 08:34] LABS: ALBUMIN 3.8 g/dL (3.2-5.0); ALKALINE PHOSPHATASE 94 u/l (38-126); ANION GAP 13 (6-22 (CALC)); BILIRUBIN, TOTAL 2.1 mg/dL (0.0-1.4); BUN 30 mg/dL (8-23); BUN/CREATININE RATIO 32 (12-20 (CALC)); CALCULATED LDLCHOLESTEROL 94 mg/dL (62-129 (CALC)); CARBON DIOXIDE 24 mmol/l (22-30); CHLORIDE 103 mmol/l (95-108); CHOLESTEROL HDL RATIO 4.7 (<4.4 (CALC)); CREATININE 0.9 mg/dL (0.7-1.3); GFR > 60 ML/MIN (>=60 (CALC)); GFR FOR AFR.AMER. > 60 ML/MIN (>=60 (CALC)); HDL CHOLESTEROL 30 mg/dL (>=40); MAGNESIUM 1.8 mg/dL (1.6-2.3); SGOT/AST 39 u/l (19-48); SODIUM 136 mmol/l (137-146); TOTAL CHOLESTEROL 141 mg/dl (0-199); TOTAL PROTEIN 6.7 g/dL (6.3-8.2); TOTAL TRIGLYCERIDES 84 mg/dl (30-149); VLDL CHOLESTROL 17 mg/dl (4-45 (CALC))
[2020-06-20 08:36] LABS: POTASSIUM 4.2 mmol/l (3.5-5.1)
[2020-06-20 11:15] VITALS: BP 95/81
--- NOTE | 2020-06-20 11:15 | NUR ---
PT TAKEN VIA WC AND O2 VIA NC TO US FOR THORACENTESIS.
--- NOTE | 2020-06-20 12:30 | NUR ---
PT RETURNED FROM THORACENTESIS, O2 VIA NC @3L REAPPLIED. PT STILL REPORTING SOB AND "NOT FEELING" WELL. O2 READING 97-99%, PT ENCOURAGED TO CONCENTRATE ON BREATHING. DRESSING CDI. CALL LIGHT IN REACH. CONTINUE TO MONITOR.
--- NOTE | 2020-06-20 13:48 | NUR ---
S: JENNIFER LEHMAN is a 64 M who presents with pneumonia. He has a history of NE,ALCOHOL, and TOB . All medications in patient's chart were reviewed. O: VS: BP 95/81 mmHg, P 95 bpm, RR 22 breath per minute, T 97.3 F W 60.5 kg, HT 66 in, Scr= 0.9 mg/dl, CrCl= 71.0 ml/min A: Blood culture is pending. P: Patient is on Cefepime 2g IV Q8H. Vancomycin ordered for pharmacy to dose. Start Vancomycin 1g IV Q12H. Vancomycin trough is drawn before the 4th dose on 06/22/20 at 0430. Vancomycin goal trough is between 15-20 mcg/ml. Pharmacy will follow and or advise on antibiotics use as needed.
[2020-06-20 16:08] VITALS: BP 91/69
--- NOTE | 2020-06-20 17:23 | NUR ---
PT SLEEPING IN BED, SHALLOW BREATHING NOTED. PT AWAKENED TO TAKE SCHEDULED MEDICATION. CALL LIGHT IN REACH. CONTINUE TO MONITOR.
--- NOTE | 2020-06-20 18:22 | NUR ---
EKG OBTAINED FOR "RHYTHM CHANGE" PER TELE MONITORING AND ED PHYSICIAN. NO CHANGE IN PT STATUS COMPARED TO TODAY'S BASELINE. CONTINUE TO MONITOR.
--- NOTE | 2020-06-20 18:57 | NUR ---
LIDIA CHOW NOTIFIED OF PTS EKG CHANGE PER ED MONITORING AND WHAT REPEAT EKG SHOWED, Reece MEDINA INFORMED OF PTS TROPONIN RESULTS DURING ADMISSION. PER LIDIA CONTINUE TO MONITOR PT.
--- NOTE | 2020-06-20 19:30 | NUR ---
REPORT FROM DONNA RN. PT NOTED RESTING IN BED WITH EYES CLOSED. NO APPARENT DISTRESS NOTED. PT WAKES EASILY, DENIES ANY CURRENT WANTS OR NEEDS. MORTGAGE PROCESSOR IN PLACE. CALL LIGHT WITHIN REACH. WILL CONTINUE TO MONITOR.
[2020-06-20 20:40] VITALS: BP 77/60
--- NOTE | 2020-06-20 21:30 | NUR ---
PT NOTED UP IN BATHROOM WITHOUT O2 ON. O2 REAPPLIED. ASSISTED PT BACK TO BED. SMALL AMOUNT OF URINE NOTED IN BED, PT UPSET STATING " I'M NOT TAKING ANY MORE WATER PILLS". COMPLETE LINEN CHANGE PROVIDED. PT STATES PANTS ARE NOT WET AND REFUSED TO REMOVE THEM AT THIS TIME. PT REMAINS DISGRUNTLED, REFUSING EDUCATION AND TO DISCUSSED POC. PT MEDICATED AND VS RECHECKED AT THIS TIME. NO APPARENT DISTRESS NOTED. SOB DUE TO EXERTION, ENCOURAGED BREATHING EXERCISES. PT BACK INTO BED. WHEEL GRINDER IN PLACE. PERSONAL CELLPHONE PLACED ON BUTTON ATTACHING MACHINE OPERATOR. IV SITE APPEARS HEALTHY, FLUSHED WELL. CALL LIGHT WITHIN REACH. WILL CONTINUE TO MONITOR.
[2020-06-20 21:34] VITALS: BP 102/75
--- NOTE | 2020-06-20 23:41 | NUR ---
PT REFUSED FOR VS TO BE TAKEN AT THIS TIME. ATTEMPTED TO EDUCATE PT ALSO REFUSED. CALL LIGHT WITHIN REACH, NO APPARENT DISTRESS NOTED. WILL CONTINUE TO MONITOR.
[2020-06-21] VITALS (7 sets, daily range): BP systolic 82–109; BP diastolic 58–78
--- NOTE | 2020-06-21 03:21 | NUR ---
YPT RESTING IN BED WITH EYES CLOSED. NO APPARENT DISTRESS NOTED. O2 IN PLACE. RESPIRATIONS EVEN AND UNLABORED. CALL LIGHT WITHIN REACH. WILL CONTINUE TO MONITOR.
[2020-06-21 05:39] LABS: HEMATOCRIT 35.3 % (39.0-50.0); HEMOGLOBIN 11.7 g/dl (14.0-18.0); IMMATURE GRANULOCYTES 0.4 % (0.0-5.0); MEAN CORPUSCULAR HGB 33.1 pG CALC (26.0-32.0); MEAN CORPUSCULAR HGB CONC 33.1 g/dL CAL (32.0-36.0); NEUT# 6.14 thou/uL (1.82-7.42); RED BLOOD COUNT 3.53 mill/uL (4.70-6.10); RED CELL DISTRI WIDTH 17.7 % (11.5-15.5)
--- NOTE | 2020-06-21 05:45 | NUR ---
PT C/O PAIN AT IV SITE. IV FLUSHED WELL NOT APPARENT REDNESS OR SWELLING. NEW IV SITE OBTAINED X1 ATTEMPT #20 LFA. OLD IV SITE REMOVED, CATH INTACT. PT TOLERATED WELL.
[2020-06-21 06:03] LABS: ALBUMIN 3.4 g/dL (3.2-5.0); ALKALINE PHOSPHATASE 89 u/l (38-126); ANION GAP 12 (6-22 (CALC)); BILIRUBIN, TOTAL 2.2 mg/dL (0.0-1.4); BUN 30 mg/dL (8-23); BUN/CREATININE RATIO 31 (12-20 (CALC)); CARBON DIOXIDE 22 mmol/l (22-30); CHLORIDE 106 mmol/l (95-108); CREATININE 0.9 mg/dL (0.7-1.3); GFR > 60 ML/MIN (>=60 (CALC)); GFR FOR AFR.AMER. > 60 ML/MIN (>=60 (CALC)); MAGNESIUM 1.6 mg/dL (1.6-2.3); POTASSIUM 4.2 mmol/l (3.5-5.1); SGOT/AST 34 u/l (19-48); SODIUM 136 mmol/l (137-146); TOTAL PROTEIN 6.3 g/dL (6.3-8.2)
--- NOTE | 2020-06-21 07:45 | NUR ---
ASSESSMENT IS COMPLETED: IV SITE IS FREE FROM REDNESS OR EDEMA. HR IS REG,PULSES ARE STRONG X4, ABD IS SOFT WITH ACTIVE BS. BREATHSOUNDS ARE DIMINISHED. O2 @4 LITERS WITH NC. 98% TELE MONITOR IN PLACE.
--- NOTE | 2020-06-21 08:04 | NUR ---
PT REFUSING THE LASIX PILL , AND IV FORM TIRED OF URINATING ON HIS SELF
--- NOTE | 2020-06-21 10:15 | NUR ---
PT PLACE CONDOM CATHETER ON SELF. GAVE MEDICATION PER IV SITE. CONTINUE TO OBSERVE AND MONITOR.
--- NOTE | 2020-06-21 11:21 | NUR ---
PT C/O UNABLE TO BREATHE , INCREASED THE O2 TO 4 %. EXPLAINED TO PT THE MOVE TO A DIFFERENT ROOM. VERBALIZED UNDERSTANDING. STATED" I DON'T THINK I WILL BE AROUND TOO LONG TONIGHT".
--- NOTE | 2020-06-21 13:04 | NUR ---
PT IS CURRENTLY RELAXING IN BED CONDOM CATHETER IS WORKING
--- NOTE | 2020-06-21 14:25 | NUR ---
IV SITE STARTED TO PUFF WHEN FLUSHED. PT C/O HURTING WILL ATTEMPT TO RESTART
--- NOTE | 2020-06-21 14:44 | NUR ---
NEW IV SITE PLACED ON MANI WITH 22 BY CESAR MEJIAS,
--- NOTE | 2020-06-21 16:45 | NUR ---
PT IS RELAXING IN BED WITH NO DISTRESS NOTED. IV SITE IS FREE FROM REDNESS OR EDEMA.
--- NOTE | 2020-06-21 18:24 | NUR ---
CASE MANAGEMENT SPOKE WITH PT RE: HOSPICE CONSULT
--- NOTE | 2020-06-21 19:10 | NUR ---
REPORT FROM [facility]. ASSUME PT CARE. PT NOTED RESTING IN BED WITH EYES CLOSED. NO APPARENT DISTRESS NOTED. CALL LIGHT WITHIN REACH. WILL CONTINUE TO MONITOR.
--- NOTE | 2020-06-21 21:44 | NUR ---
PT MEDICATED ORDERED. NO APPARENT DISTRESS NOTED. SNACK AND SLEEPING PILL PROVIDED UPON REQUEST. IV SITE APPEARS HEALTHY. CALL LIGHT WITHIN REACH. WILL CONTINUE TO MONITOR.
[2020-06-22 00:25] VITALS: BP 91/68
--- NOTE | 2020-06-22 01:52 | NUR ---
PT RESTING IN BED WITH EYES CLOSED. NO APPARENT DISTRESS NOTED. O2 IN PLACE. RESPIRATIONS EVEN AND UNLABORED. CALL LIGHT WITHIN REACH. WILL CONTINUE TO MONITOR.
[2020-06-22 04:53] LABS: HEMATOCRIT 34.2 % (39.0-50.0); HEMOGLOBIN 11.5 g/dl (14.0-18.0); MEAN CELL VOLUME 99.4 fL CALC (80.0-100.0); MEAN CORPUSCULAR HGB 33.4 pG CALC (26.0-32.0); MEAN CORPUSCULAR HGB CONC 33.6 g/dL CAL (32.0-36.0); RED BLOOD COUNT 3.44 mill/uL (4.70-6.10); RED CELL DISTRI WIDTH 17.8 % (11.5-15.5)
[2020-06-22 05:05] LABS: ANION GAP 11 (6-22 (CALC)); BUN 28 mg/dL (8-23); BUN/CREATININE RATIO 30 (12-20 (CALC)); CARBON DIOXIDE 23 mmol/l (22-30); CHLORIDE 105 mmol/l (95-108); CREATININE 0.9 mg/dL (0.7-1.3); GFR > 60 ML/MIN (>=60 (CALC)); GFR FOR AFR.AMER. > 60 ML/MIN (>=60 (CALC)); POTASSIUM 4.1 mmol/l (3.5-5.1); SODIUM 135 mmol/l (137-146)
[2020-06-22 08:00] VITALS: BP 99/78
--- NOTE | 2020-06-22 08:03 | NUR ---
ASSESSMENT DONE. PATIENT IS A&O X3. PATIENT DENIES PAIN AT THIS TIME. PT STATED SOB AT TIMES. 02 AT 3L VIA NC. TELE IN PLACE. #22 MANI THAT APPEARS HEALTHY. PT LUNGS SOUNDS/DIMINISHED. JUICE PROVIDED. PT DENIES ANY OTHER NEEDS AT THIS TIME. CALL LIGHT IN REACH.
[2020-06-22 12:05] VITALS: BP 101/78
--- NOTE | 2020-06-22 12:56 | NUR ---
PATIENT HAS A DRY COUGH. PATIENT STATED HE IS TIRED AND CAN'T DO THIS ANY MORE WITH HIS COUGH. PATIENT IS ANXOUIS. O2 AT 3L VIA NC. CHECK PT O2-97 AND P-106. MEDICATED PT WITH XANAX. PT DENIES ANY OTHER NEEDS AT THIS TIME. NOTIFIED SANTOS SEWELL Re: PT DRY COUGH.
--- NOTE | 2020-06-22 13:32 | NUR ---
S: JENNIFER LEHMAN is a 64 M who presents with pneumonia. He has a history of [place], tabacco, and alcohol user. All medications in patient's chart were reviewed. O: VS: BP 101/78 mmHg, P 100 bpm, RR 20 breaths per min, T 96.6 F W 60.5 kg, HT 66 in, Scr= 0.9 mg/dL, CrCl= 71.0 ml/min A: Blood culture is pending. Body fluid culture shows no growth. Trough on 06/22/20: 14 ug/mL P: Patient is on cefepime 2 g IV q8h. Vancomycin ordered for pharmacy to dose. Continiue Vancomycin 1 g IV Q12H. Vancomycin trough is drawn before the 4th dose on 06/24/20 at 0430. Vancomycin goal trough is between 15-20 mcg/ml. Pharmacy will follow and or advise on antibiotics use as needed.
[2020-06-22 15:34] VITALS: BP 109/84
--- NOTE | 2020-06-22 16:10 | NUR ---
PT STATED HE WANTS TO WALK IN THE HALLWAYS. AMBUALTING WITH PT IN THE HALLWAY. O2 AT 3L VIA NC IN PLACE. RESPS LABORED AT TIMES. PT STATED HE IS FINE.
--- NOTE | 2020-06-22 19:02 | NUR ---
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
--- NOTE | 2020-06-22 19:35 | NUR ---
REPORT FROM BARRY MEJIAS. PT NOTED RESTING IN BED WATCHING TV. NO APPARENT DISTRESS NOTED. DENIES ANY CURRENT WANTS OR NEEDS. 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 IV SITE APPEARS HEALTHY. IV ABT INFUSING WITHOUT DIFFICULTY. DISCUSSED POC. PT VERBALIZED UNDERSTANDING. CALL LIGHT WITHIN REACH. WILL CONTINUE TO MONITOR.
[2020-06-22 21:15] VITALS: BP 103/56
[2020-06-23 00:10] VITALS: BP 107/81
--- NOTE | 2020-06-23 01:25 | NUR ---
PT C/O NAUSEA AND ABD PAIN. SITTING UP IN CHAIR AT BEDSIDE. ELYSE LILLIAM, CRACKERS, AND EMESIS BAG PROVIDED AT THIS TIME. PHYSICIAN NOTIFIED. ORDERS RECEIVED AT THIS TIME. WILL CONTINUE TO MONITOR.
[2020-06-23 04:10] VITALS: BP 101/71
--- NOTE | 2020-06-23 04:30 | NUR ---
PT RESTING IN BED WITH EYES CLOSED. NO APPARENT DISTRESS NOTED. RESPIRATIONS EVEN AND UNLABORED. 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 CALL LIGHT WITHIN REACH. WILL CONTINUE TO MONITOR.
--- NOTE | 2020-06-23 07:25 | NUR ---
XANAX ADMINISTERED FOR ANXIETY. VSS. NO APPARENT RESPIRATORY DISTRESS NOTED. IV ABT INFUSING WITHOUT DIFFICULTY. PT STATES ABD PAIN RESOLVED, DENIES ANY NAUSEA AT THIS TIME. CALL LIGHT WITHIN REACH. WILL CONTINUE TO MONITOR.
[2020-06-23 07:41] VITALS: BP 102/77
[2020-06-23 10:25] VITALS: BP 103/77
[2020-06-23 16:01] VITALS: BP 110/81
[2020-06-23 16:31] LABS: C. DIFFICILE TOXIN A&B NEGATIVE (NEGATIVE)
--- NOTE | 2020-06-23 16:48 | NUR ---
Discharge instructions given. Patient verbalizes understanding of same. Discharged in stable condition via [facility] with staff. All belongings sent with pt.
== END 2020-06-23 17:00 | disposition hospice, inpatient (51) | DRG 193 ==
LOC: ED 13:54 → ED-I 17:41 → ED 17:53 → MS2 17:54 → UNDODEPER 19:18 → MS2 23:39
PROVIDERS: Family Medicine; Nurse Practitioner; ADMIT Internal Medicine; ATTEND Internal Medicine
PROC: 0W993ZZ Drainage of Right Pleural Cavity, Percutaneous Approach (ICD-10-PCS; principal; 2020-06-20)
DX: J18.9 Pneumonia, unspecified organism (principal); J96.01 Acute respiratory failure with hypoxia; I50.21 Acute systolic (congestive) heart failure; J91.8 Pleural effusion in other conditions classified elsewhere; I25.10 Atherosclerotic heart disease of native coronary artery without angina pectoris; F41.9 Anxiety disorder, unspecified; F32.9 Major depressive disorder, single episode, unspecified; I25.5 Ischemic cardiomyopathy; I25.2 Old myocardial infarction; F17.200 Nicotine dependence, unspecified, uncomplicated; Z20.828 Contact with and (suspected) exposure to other viral communicable diseases
CPT/HCPCS: J0692; J1650; Q9967